=== PATIENT | female | born 1990 | race Caucasian/White ===

== ENCOUNTER 2017-07-14 12:23 | Emergency (ER) | payer OTHER ==
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
== END 2017-07-14 15:43 | disposition home or self-care (01) ==
LOC: HOBED 12:23
DX: Z04.1 Encounter for examination and observation following transport accident (principal); Z34.93 Encounter for supervision of normal pregnancy, unspecified, third trimester; Z3A.36 36 weeks gestation of pregnancy
CPT/HCPCS: 59025

== ENCOUNTER 2017-08-04 07:24 | Emergency (ER) | payer OTHER ==
--- NOTE | 2017-08-04 08:21 | PD ---
HPI Travel History International Travel<30 Days: No Contact w/Intl Traveler<30Days: No Known Affected Area: No History of Present Illness HPI 26-year-old , IUP at 39.6 care uncomplicated. Patient presents complaining of the onset of painful contractions about 2 AM this morning. She reports that she feels these contractions every 5-7 minutes and they have increased in intensity and frequency over the night. She denies any vaginal bleeding or leaking of fluid. She had a trace of spotting with wiping 1 during the night but no vaginal bleeding. She reports good movement. There have been no aggravating or alleviating factors to the contractions other than increasing with time and no attempted treatments. Weeks Gestation: 39 Para: 0 : 1 History Past Medical History Medical History: Denies Significant Hx Obstetric History Obstetric History Past Surgical History Surgical History: No Previous Surgery Family History Family History: Negative Social History Alcohol Use: No Tobacco Use: No Substance Abuse: No Allergies-Medications (Allergen,Severity, Reaction): Coded Allergies: No Known Allergies (Unverified , 07/14/17) Review of Systems Except as stated in HPI: all other systems reviewed are Neg Physical Exam Narrative GENERAL: Well-nourished, well-developed patient. SKIN: Warm and dry. HEAD: Normocephalic and atraumatic. EYES: No scleral icterus. No injection or drainage. ENT: No nasal drainage noted. Mucous membranes pink. Airway patent. NECK: Supple, trachea midline. No JVD. CARDIOVASCULAR: Regular rate and rhythm without murmurs, gallops, or rubs. RESPIRATORY: Breath sounds equal bilaterally. No accessory muscle use. BREASTS: Deferred ABDOMEN/GI: Abdomen soft, non-tender, bowel sounds present, no rebound, no guarding Gravid GENITOURINARY: External Genitalia: intact and normal in appearance, BUS normal, no cervical or vaginal masses noted, normal rugae, physiologic discharge with some dark blood-tinged mucus. SVE 1-2/90/-1, posterior FHT's: Heart tone baselines in the 120s with good accelerations and no decelerations noted. There is moderate long-term variability. Patient has a reactive NST and category 1 heart rate tracing EXTREMITIES: No cyanosis or edema. BACK: Nontender without obvious deformity. No CVA tenderness. NEUROLOGICAL: Awake and alert. Motor and sensory grossly within normal limits. Five out of 5 muscle strength in all muscle groups. Normal speech. Musculoskeletal: Grossly normal ROM, gait, muscle strength Psychiatric: Grossly normal memory and affect MDM Plan Assessment/plan: 1. IUP at 39.6 2. Contractions at term: Cervix 1-2 cm dilated and was 1 cm dilated in the office last week. Although her cervix is effaced, it remains posterior. Patient declined an observation period of walking with reassessment in 1-2 hours and prefers to be discharged home at this time. Strict labor precautions. 3. well-being: Reassuring testing with reactive NST, FHR reassuring and appropriate for gestational age with category 1 tracing, kick counts daily. 4. Follow-up after curving her today as scheduled or sooner if needed Diagnosis Diagnosis: Primary Impression: 39 weeks gestation of Additional Impression: False labor after 37 completed weeks of gestation Disposition: 01 DISCHARGE HOME Condition: Good Patient Instructions: Movement (ED), Having Your Baby: The Labor Process (GEN), Early Labor Signs (ED) Shaila Guerra MD Aug 04, 2017 08:20
[2017-08-04] MEDS ORDERED: PREN29TA PO (21:38)
== END 2017-08-04 08:44 | disposition home or self-care (01) ==
LOC: HOBED 07:24
DX: O47.1 False labor at or after 37 completed weeks of gestation (principal); Z3A.39 39 weeks gestation of pregnancy
CPT/HCPCS: 59025

== ENCOUNTER 2017-08-04 20:49 | Inpatient (IN) | payer OTHER ==
[~2017-08-04] VITALS: Ht 165.1 cm; Wt 68.0 kg
[2017-08-04] MEDS ORDERED: LACTATED RINGER'S 1000 ML INJ 1,000 ML IV PRN (21:21)
[2017-08-04] MEDS ORDERED: LACTATED RINGER'S 1000 ML INJ 1,000 ML IV SCH (21:21)
--- NOTE | 2017-08-04 21:21 | HHI.HP ---
HPI Chief Complaint Water broke and jalen Date Seen: Aug 04, 2017 Time Seen: 21:15 Travel History International Travel<30 Days: No Contact w/Intl Traveler<30Days: No Known Affected Area: No History of Present Illness HPI 26-year-old white female at 39 weeks [address] Travis presents complaining of contractions and her water leaking, heart rate tracing is reactive and she is jalen every 3-4 minutes. Amnio sure is positive Weeks Gestation: 39 Para: 0 : 1 History Social History Alcohol Use: No Tobacco Use: No Substance Abuse: No Allergies-Medications (Allergen,Severity, Reaction): Coded Allergies: No Known Allergies (Unverified , 07/14/17) Review of Systems General / Constitutional: No: Fever, Weight Gain, Chills, Other Eyes: No: Diploplia, Blurred Vision, Visual changes, Pain, Photophobia HENT: No: Headaches, Vertigo, Lightheadedness Cardiovascular: No: Irregular Rhythm, Chest Pain or Discomfort, Palpitations, Tachycardia, Syncope, Varicosities, Edema, Cyanosis Respiratory: No: Cough, Short of Breath, Other Gastrointestinal: No: Nausea, Vomiting, Diarrhea Genitourinary: No: Decreased Urinary Output, Oliguria Musculoskeletal: No: Limited ROM, Weakness, Cramping, Edema, Pain Skin: No Rash, No Itching, No Dryness, No Lumps, No Change in Pigmentation, No Change in Nails, No Alopecia, No Lesions Neurologic: No: Weakness, Dizziness, Syncope, Focal Abnormalities, Coordination Problem, Headache, Slurred Speech, Seizures Psychiatric: No: Depression, Suicidal Ideations, Homicidal Ideation Endocrine: No: Heat Intolerance, Cold Intolerance, Polydipsia, Polyuria, Other Physical Exam Narrative GENERAL: Well-nourished, well-developed patient. SKIN: Warm and dry. HEAD: Normocephalic and atraumatic. EYES: No scleral icterus. No injection or drainage. ENT: No nasal drainage noted. Mucous membranes pink. Airway patent. NECK: Supple, trachea midline. No JVD. CARDIOVASCULAR: Regular rate and rhythm without murmurs, gallops, or rubs. RESPIRATORY: Breath sounds equal bilaterally. No accessory muscle use. BREASTS: Bilateral exam showed no masses , no retractions, no nipple discharge. ABDOMEN/GI: Abdomen soft, non-tender, bowel sounds present, no rebound, no guarding Gravid to [39-] weeks size Fundal Height: [-39] GENITOURINARY: External Genitalia: intact and normal in appearance BUS glands: [-] Cervix: [-] Dilatation: [4-] Effacement: [80-] Station: [-2] Presentation: [-vvtx] Membranes: ruptured] amnio sure positive Uterine Contractions: [-q 3 min] FHT's: Category: [-1] Baseline: [133-] Reactive: [yes-] Variability: [-mod] Decels: [-none] EXTREMITIES: No cyanosis or edema. BACK: Nontender without obvious deformity. No CVA tenderness. NEUROLOGICAL: Awake and alert. Motor and sensory grossly within normal limits. Five out of 5 muscle strength in all muscle groups. Normal speech. Caprini VTE Risk Assessment Caprini VTE Risk Assessment: No/Low Risk (score <= 1) Caprini Risk Assessment Model Point Value = 1 Point Value = 2 Point Value = 3 Point Value = 5 Age 41-60 Minor surgery BMI > 25 kg/m2 Swollen legs Varicose veins or History of unexplained or recurrent spontaneous Oral contraceptives or hormone replacement Sepsis (< 1 month) Serious lung disease, including pneumonia (< 1 month) Abnormal pulmonary function Acute myocardial infarction Congestive heart failure (< 1 month) History of inflammatory bowel disease Medical patient at bed rest Age 61-74 Arthroscopic surgery Major open surgery (> 45 min) Laparoscopic surgery (> 45 min) Malignancy Confined to bed (> 72 hours) Immobilizing plaster cast Central venous access Age >= 75 History of VTE Family history of VTE Factor V Leiden Prothrombin [id number] Lupus anticoagulant Anticardiolipin antibodies Elevated serum homocysteine Heparin-induced thrombocytopenia Other congenital or acquired thrombophilia Stroke (< 1 month) Elective arthroplasty Hip, pelvis, or leg fracture Acute spinal cord injury (< 1 month) Prophylaxis Regimen Total Risk Factor Score Risk Level Prophylaxis Regimen 0-1 Low Early ambulation 2 Moderate Order ONE of the following: *Sequential Compression Device (SCD) *Heparin 5000 units SQ BID 3-4 Higher Order ONE of the following medications: *Heparin 5000 units SQ TID *Enoxaparin/Lovenox 40 mg SQ daily (WT < 150 kg, CrCl > 30 mL/min) *Enoxaparin/Lovenox 30 mg SQ daily (WT < 150 kg, CrCl > 10-29 mL/min) *Enoxaparin/Lovenox 30 mg SQ BID (WT < 150 kg, CrCl > 30 mL/min) AND/OR *Sequential Compression Device (SCD) 5 or more Highest Order ONE of the following medications: *Heparin 5000 units SQ TID (Preferred with Epidurals) *Enoxaparin/Lovenox 40 mg SQ daily (WT < 150 kg, CrCl > 30 mL/min) *Enoxaparin/Lovenox 30 mg SQ daily (WT < 150 kg, CrCl > 10-29 mL/min) *Enoxaparin/Lovenox 30 mg SQ BID (WT < 150 kg, CrCl > 30 mL/min) AND *Sequential Compression Device (SCD) Data Data Group B Strep: Negative Labs amnisure + Assessment/Plan Assessment and Plan 6-year-old white female at 39-40 weeks presents with spontaneous ruptured membranes early labor. Cervix is 4 cm 80% -2, positive amnio sure noted, contractions regular and painful heart rate tracing is reactive Impression --early labor with spontaneous ruptured membranes at term Plan-admit note from Dr. Tovar covering tonight for Dr. Travis and the plan labor management and anticipate vaginal delivery Christ Cummins II, MD Aug 04, 2017 21:21
[2017-08-04] MEDS ORDERED: SODIUM CHLORID 0.9% 500 ML INJ 500 ML IV PRN (21:30)
[2017-08-04] MEDS ORDERED: MINERAL OIL 10 ML VIAL TOPICAL PRN (21:30)
[2017-08-04] MEDS ORDERED: LIDOCAINE HCL 1% 50 ML VIAL I-DERMAL PRN (21:30)
[2017-08-04] MEDS ORDERED: CITRIC ACID-SODIUM CITRATE LIQ 30 ML UDC PO SCH (21:30)
[2017-08-04] MEDS ORDERED: OXYTOCIN 30 UNITS-500ML PREMIX 500 ML IV ONE (21:30)
[2017-08-04] MEDS ORDERED: ONDANSETRON HCL 4 MG/2 ML VIAL IV PRN (21:30)
[2017-08-04] MEDS ORDERED: LIDOCAINE HCL 1% 50 ML VIAL INFIL PRN (21:30)
[2017-08-04] MEDS ORDERED: PREN29TA PO (21:38)
[2017-08-04] MEDS ORDERED: SODIUM CHLOR 0.9% 1000 ML INJ 1,000 ML IV PRN (21:41)
[2017-08-04 21:47] LABS: BLOOD, URINE SMALL (NEG); COMMENT (UR) CULT NOT INDICATED; CULTURE IF INDICATED CULT NOT INDICATED; GLUCOSE,URINE NEG (NEG); KETONE, URINE NEG (NEG); NITRITE,URINE NEG (NEG); URINE COLOR YELLOW (YELLW/STRAW)
[2017-08-04] MEDS ORDERED: fentaNYL 2MCG-BUPIV 0.125% INJ 100 ML ONE (21:49)
[2017-08-04 22:00] LABS: AUTOMATED NEUTROPHIL # 10.9 TH/MM3 (1.8-7.7); BASOPHIL % 0.2 % (0.0-2.0); EOSINOPHIL % 0.4 % (0.0-4.0); HEMATOCRIT 31.8 % (35.0-46.0); HEMO FLAGS DIFF FINAL; LYMPH % 11.2 % (9.0-44.0); LYMPHOCYTE # 1.5 TH/MM3 (1.0-4.8); MEAN CELL VOLUME 90.6 FL (80.0-100.0); MEAN CORPUSCULAR HEMOGLOBIN 30.3 PG (27.0-34.0); MEAN CORPUSCULAR HGB CONC 33.5 % (32.0-36.0); MONO % 6.5 % (0.0-8.0); NEUT % 81.7 % (16.0-70.0); PLATELET COUNT 256 TH/MM3 (150-450); RED BLOOD COUNT 3.51 MIL/MM3 (4.00-5.30); RED CELL DISTRIBUTION WIDTH 12.9 % (11.6-17.2); WHITE BLOOD COUNT 13.4 TH/MM3 (4.0-11.0)
[2017-08-04] MEDS ORDERED: LIDOCAINE HCL 1% 30 ML VIAL INFIL PRN (22:30)
--- NOTE | 2017-08-05 02:56 | PD.OB.DELI ---
Weeks gestation: 40 Gest age assessed date: Aug 05, 2017 Gest age assessed time: 02:54 Pt started active labor?: Yes Active labor start date: Aug 04, 2017 Active labor start time: 21:15 Medical induction of labor?: No Artificial rupture of membrane: No Anesthesia: Epidural Episiotomy: None Vaginal Delivery: Normal Presentation: Occiput anterior Nuchal Cord: x1 (clamped & cut at perineum) Delayed cord clamping (45 sec): No : Male Delivery date: Aug 05, 2017 Delivery time: 02:31 One Minute : 9 Five Minute : 9 Weight: 7#5oz Placenta: Spontaneous delivery, Intact, 3 vessel cord (peripheral cord insert; sent to pathology) Laceration: Vaginal laceration, 2 deg Repair: Vicryl running Estimated blood loss: 100 mL Katie Tovar MD Aug 05, 2017 02:56
--- NOTE | 2017-08-05 02:57 | HHI.DCPOC ---
Discharge Care Plan Diagnosis: (1) (spontaneous vaginal delivery) Your Health Problems Are: Vaginal delivery Report Symptoms to Your Doctor -Temperature above 100.5 degrees -Redness, of incision or excessive or foul smelling drainage -Unusual pain or calf pain -Increased vaginal bleeding -Painful or difficulty urinating -Feelings of extreme sadness or anxiety after 2 weeks Goals to Promote Your Health * To prevent worsening of your condition and complications * To maintain your health at the optimal level Directions to Meet Your Goals Take your medications as prescribed Follow your dietary instruction Follow activity as directed Ensure plenty of rest for recovery Drink fluids for hydration Keep your appointments as scheduled Take your immunizations and boosters as scheduled If your symptoms worsen call your PCP, if no PCP go to Urgent Care Center or Emergency Room Smoking is Dangerous to Your Health. Avoid second hand smoke Call the 24-hour crisis hotline for domestic abuse at Katie Tovar MD Aug 05, 2017 02:57
[2017-08-05] MEDS ORDERED: OXYTOCIN 30 UNITS-500ML PREMIX 500 ML IV SCH (03:00)
[2017-08-05] MEDS ORDERED: oxyCODONE/ACETAMINOPHEN 5 MG/325 MG TAB PO PRN ×2 (03:00)
[2017-08-05] MEDS ORDERED: ZOLPIDEM TARTRATE 5 MG TAB PO PRN (03:00)
[2017-08-05] MEDS ORDERED: ALUMINUM/MAGNESIUM/SIMETH 30 ML CUP PO PRN (03:00)
[2017-08-05] MEDS ORDERED: BENZOCAINE 20% TOPICAL SPRAY 60 ML CAN TOPICAL PRN (03:00)
[2017-08-05] MEDS ORDERED: ONDANSETRON ODT 4 MG TAB PO PRN (03:00)
[2017-08-05] MEDS ORDERED: SODIUM CHLORIDE 0.9% FLUSH 10 ML FLUSH IV FLUSH PRN (03:00)
[2017-08-05] MEDS ORDERED: SODIUM CHLORIDE 0.9% FLUSH 10 ML FLUSH IV FLUSH SCH (03:00)
[2017-08-05] MEDS ORDERED: WITCH HAZEL 50%/GLYCERIN 12.5% 40 PAD JAR TOPICAL PRN (03:00)
[2017-08-05] MEDS: IBUPROFEN 600 MG TAB PO PRN ×3 (05:42→21:56)
[2017-08-05] MEDS: DOCUSATE SODIUM 50 MG/SENNA 8.6 MG TAB PO PRN ×2 (05:43→21:56)
[2017-08-05] MEDS: ACETAMINOPHEN 325 MG TAB PO PRN ×3 (05:43→21:56)
[2017-08-05] MEDS ORDERED: DO NOT ADMINISTER ANTICOAGULANTS PRN (06:15)
[2017-08-05] MEDS ORDERED: NO SYSTEM NARCOTICS PRN (06:15)
[2017-08-05] MEDS ORDERED: ePHEDrine/NS 25 MG/5 ML SYR IV PRN (06:15)
[2017-08-05] MEDS ORDERED: fentaNYL 2MCG-BUPIV 0.125% 100 ML EPIDURAL SCH (06:15)
[2017-08-05] MEDS ORDERED: DIPHTH/TETANUS/ACEL PERTUSSIS (BOOSTER) 0.5 ML VIAL/PFS IM ONE (16:00)
[2017-08-05] MEDS ORDERED: MEASLES, MUMPS, RUBELLA VACCINE 0.5 ML VIAL SQ ONE (16:00)
[2017-08-06] MEDS: IBUPROFEN 600 MG TAB PO PRN (04:53)
[2017-08-06] MEDS: ACETAMINOPHEN 325 MG TAB PO PRN (04:55)
--- NOTE | 2017-08-06 08:11 | HHI.OB ---
Subjective Post Day: 2 Remarks PPD#2, stable, planning discharge Objective Vitals/I&O Vital Signs Date Time Temp Pulse Resp B/P (MAP) Pulse Ox O2 Delivery O2 Flow Rate FiO2 08/05/17 22:56 16 08/05/17 22:56 16 Objective Remarks GENERAL: Well-nourished, well-developed patient. CARDIOVASCULAR: Regular rate and rhythm without murmurs, gallops, or rubs. RESPIRATORY: Breath sounds equal bilaterally. No accessory muscle use. ABDOMEN/GI: Abdomen soft, non-tender. Fundus: Firm, non-tender at umbilicus. GENITOURINARY: Light to moderate bleeding. EXTREMITIES: No cyanosis or edema, non-tender, without signs of DVT. Medications and IVs Current Medications Medications (Trade) Dose Ordered Sig/Adrianne Route Start Time Stop Time Status Last Admin (NS Flush) 2 ml BID IV FLUSH 08/05/17 03:00 08/05/17 03:00 (NS Flush) 2 ml UNSCH PRN IV FLUSH 08/05/17 03:00 (Tylenol) 650 mg Q4H PRN PO 08/05/17 03:00 08/06/17 04:55 (Motrin) 600 mg Q6H PRN PO 08/05/17 03:00 08/06/17 04:53 (Percocet 5-325 Mg) 1 tab Q4H PRN PO 08/05/17 03:00 (Percocet 5-325 Mg) 2 tab Q4H PRN PO 08/05/17 03:00 (Americaine 20% Top Spr) 1 spray Q4H PRN TOPICAL 08/05/17 03:00 08/05/17 05:43 (Tucks Pads) 1 applic QID PRN TOPICAL 08/05/17 03:00 08/05/17 05:43 (Denisha-Colace) 2 tab Q12H PRN PO 08/05/17 03:00 08/05/17 21:56 (Ambien) 5 mg HS PRN PO 08/05/17 03:00 (Mag-Al Plus Susp Liq) 15 ml Q8H PRN PO 08/05/17 03:00 (Zofran Odt) 4 mg Q6H PRN PO 08/05/17 03:00 Fentanyl/ Bupivacaine HCl 100 ml @ 0 mls/hr TITRATE EPIDURAL 08/05/17 06:15 Assessment/Plan Assessment and Plan PPD#2, ready for discharge, Discharge Planning Routine Attending Attestation seen by Lester Dwyer MD Aug 06, 2017 08:11
[2017-08-06 08:45] VITALS: BP 109/66; PULSE 88; RESP 16; TEMP 97.2
== END 2017-08-06 12:45 | disposition home or self-care (01) | DRG 775 ==
LOC: HOBED 20:49 → H2EB 21:19 → H1EA 08-05 05:14
PROVIDERS: ADMIT Obstetrics & Gynecology; ATTEND Obstetrics & Gynecology
PROC: 3E0S3CZ (ICD-10-PCS; 2017-08-04)
PROC: 00HU33Z Insertion of Infusion Device into Spinal Canal, Percutaneous Approach (ICD-10-PCS; 2017-08-04)
PROC: 10E0XZZ Delivery of Products of Conception, External Approach (ICD-10-PCS; principal; 2017-08-05)
PROC: 0KQM0ZZ Repair Perineum Muscle, Open Approach (ICD-10-PCS; 2017-08-05)
DX: O70.1 Second degree perineal laceration during delivery (principal); Z37.0 Single live birth; O69.89X0 Labor and delivery complicated by other cord complications, not applicable or unspecified; Z3A.40 40 weeks gestation of pregnancy
CPT/HCPCS: 59025; 81001; 84112; 85025; 86900; 86901; 88307; 90715; J2405; J2590; J3010; J7120